=== PATIENT | female | born 1960 | race Caucasian/White ===

== ENCOUNTER 2018-04-16 10:29 | Day surgery (SDC) | payer OTHER ==
[~2018-04-16] VITALS: Ht 170.2 cm; Wt 134.8 kg
[~2018-04-16 10:29] MED LIST: ALBU90OI61; ESCI20 PO; FLUT1DIS5 INH; LEVO-T75 MCG PO; METF500C PO
--- NOTE | 2018-04-16 12:03 | NUR ---
04/16/18 1203 Kristy Mims AFTER SEDATION START, PT O2 WAS 88-90% ON 3L. OXYGEN TURNED UP TO 5L AT 1140. OXYGEN 96% ON 5L.
--- NOTE | 2018-04-16 13:34 | NUR ---
04/16/18 1334 Kristy Mims DELAYED ENTRY 1250 AFTER 2 CONSECUTIVE BP'S WNL, IV D.C'D. DR CAMACHO RETURNED TO STEP DOWN ROOM AND ASKED FOR A REPEAT BP AND ORDERS FOR HYDRALAZINE WITH WRITTEN PARAMETERS. 1ST IV ATTEMPT BY KNM IN RIGHT FOREARM INFILTRATED SECOND IV ATTEMPT IN LEFT HAND INFILTRATED KNM THIRD ATTEMPT BY RXS IN RIGHT HAND SUCCESSFUL. HYDRALAZINE THEN GIVEN PER ORDERS. DR CAMACHO UPDATED OF BP READINGS.
== END 2018-04-16 14:12 | disposition home or self-care (01) ==
LOC: ORSCSDS 10:29
PROVIDERS: Internal Medicine Gastroenterology
PROC: 0DBL8ZX Excision of Transverse Colon, Via Natural or Artificial Opening Endoscopic, Diagnostic (ICD-10-PCS; principal; 2018-04-16 12:00)
PROC: 0DBK8ZX Excision of Ascending Colon, Via Natural or Artificial Opening Endoscopic, Diagnostic (ICD-10-PCS; principal; 2018-04-16 12:00)
PROC: 0DBH8ZX Excision of Cecum, Via Natural or Artificial Opening Endoscopic, Diagnostic (ICD-10-PCS; principal; 2018-04-16 12:00)
PROC: 0DBN8ZX Excision of Sigmoid Colon, Via Natural or Artificial Opening Endoscopic, Diagnostic (ICD-10-PCS; principal; 2018-04-16 12:00)
DX: Z12.11 Encounter for screening for malignant neoplasm of colon (principal); D12.0 Benign neoplasm of cecum; D12.2 Benign neoplasm of ascending colon; D12.3 Benign neoplasm of transverse colon; K63.5 Polyp of colon; K57.30 Diverticulosis of large intestine without perforation or abscess without bleeding; K64.8 Other hemorrhoids
CPT/HCPCS: 82947; 88305; J0360; J2250; J7120

== ENCOUNTER 2018-04-16 17:28 | Emergency (ER) | payer OTHER ==
[~2018-04-16] VITALS: Ht 170.2 cm; Wt 113.4 kg
== END 2018-04-16 21:03 | disposition home or self-care (01) ==
LOC: ER 17:28
DX: I10 Essential (primary) hypertension (principal); C50.919 Malignant neoplasm of unspecified site of unspecified female breast; F43.9 Reaction to severe stress, unspecified; Z79.899 Other long term (current) drug therapy; Z79.84 Long term (current) use of oral hypoglycemic drugs; Z87.891 Personal history of nicotine dependence
CPT/HCPCS: 36415; 70450; 96374; 96375; 99284-25; J1200; J1885; J2765; J7030

== ENCOUNTER → 2018-05-18 | Outpatient (CLI) | payer OTHER ==
[2018-05-20 14:08] LABS: HPV 16 Negative (Negative); HPV 18 Negative (Negative); HPV OTHER HR TYPES Negative (Negative)
== END | disposition home or self-care (01) ==
LOC: LAB SHORT 11:24 → LAB 11:24
PROVIDERS: Obstetrics & Gynecology
DX: Z01.419 Encounter for gynecological examination (general) (routine) without abnormal findings (principal)
CPT/HCPCS: 87624; G0123